=== PATIENT | male | born 1970 | race Caucasian/White ===

== ENCOUNTER 2019-04-19 12:13 | Emergency (ER) | payer OTHER ==
[~2019-04-19] VITALS: Ht 177.8 cm; Wt 113.4 kg
[2019-04-19 12:21] VITALS: BP 129/83
[2019-04-19] MEDS ORDERED: AUGMENTIN 875-1 EACH PO (12:49)
[2019-04-19] MEDS ORDERED: IBUPROFEN 800800 M1 PO (12:49)
== END 2019-04-19 13:05 | disposition home or self-care (01) ==
LOC: ER 12:13
DX: S51.811A Laceration without foreign body of right forearm, initial encounter (principal); F17.210 Nicotine dependence, cigarettes, uncomplicated; W54.0XXA Bitten by dog, initial encounter; Y92.89 Other specified places as the place of occurrence of the external cause; Y93.89 Activity, other specified; Y99.8 Other external cause status

== ENCOUNTER 2019-04-22 14:07 | Emergency (ER) | payer OTHER ==
[~2019-04-22] VITALS: Ht 177.8 cm; Wt 113.4 kg
[~2019-04-22 14:07] MED LIST: AUGMENTIN 875-1 EACH PO; IBUPROFEN 800800 M1 PO
[2019-04-22] MEDS ORDERED: NORCO 5-325 TA1 EAC1 PO (14:59)
[2019-04-22] MEDS ORDERED: MUPIROCIN15 GM TOP (14:59)
[2019-04-22 15:11] VITALS: BP 146/83
== END 2019-04-22 15:11 | disposition home or self-care (01) ==
LOC: ER 14:07
DX: S50.811A Abrasion of right forearm, initial encounter (principal); F17.210 Nicotine dependence, cigarettes, uncomplicated; W54.0XXA Bitten by dog, initial encounter; Y93.89 Activity, other specified; Y92.89 Other specified places as the place of occurrence of the external cause; Y99.8 Other external cause status